=== PATIENT | male | born 1950 | race Two or more races ===

== ENCOUNTER 2022-06-27 14:49 | Inpatient (IN) | payer OTHER ==
[2022-06-27 16:04] LABS: BASO % 0.9 % (0-2.0); EOS % 0.5 % (0-4.5); HEMATOCRIT 44.5 % (35.4-49); HEMOGLOBIN 15.6 GM/dL (11.7-16.9); LYMPH % 28.1 % (8-40); MCHC 35.2 g/dl (32.0-35.9); MEAN PLT VOLUME 7.9 fl (7.5-11.1); MONO % 10.4 % (3.8-10.2); NEUT % 60.1 % (42.8-82.8); PLATELET COUNT 173 10^3/uL (134-434); RBC 4.73 M/mm3 (4.00-5.60); RDW 14.3 % (11.9-15.9); WHITE BLOOD COUNT 5.7 K/mm3 (4.0-10.0)
[2022-06-27 16:31] LABS: CHLORIDE 102 mmol/L (98-107); SODIUM 136 mmol/L (136-145)
[2022-06-27 16:33] LABS: CALCIUM 9.4 mg/dL (8.5-10.1)
[2022-06-27 16:34] LABS: ALBUMIN 3.8 g/dl (3.4-5.0); ANION GAP 8 MMOL/L (8-16); CO2 26 mmol/L (21-32); GLUCOSE,RANDOM 135 mg/dL (74-106); MAGNESIUM 2.1 mg/dL (1.8-2.4)
[2022-06-27 16:37] LABS: CREATININE 1.3 mg/dL (0.55-1.3); PHOSPHOROUS 3.3 mg/dL (2.5-4.9); SGOT/AST 31 U/L (15-37); SGPT/ALT 35 U/L (13-61)
[2022-06-27 16:38] LABS: BILIRUBIN,TOTAL 0.6 mg/dL (0.2-1); TOT PROT 7.4 g/dl (6.4-8.2)
[2022-06-27 16:39] LABS: ALK PHOS 62 U/L (45-117)
[2022-06-27 17:51] LABS: INR 1.01 (0.83-1.09); PROTHROMBIN TIME (PATIENT) 11.6 SEC (9.7-13.0)
[2022-06-27 17:54] LABS: ACTIVATED PTT 26.8 SECONDS (25.2-36.5)
[2022-06-27] MEDS ORDERED: ACETAMINOPHEN 325 MG TABLET (FP) PO PRN (22:14)
[2022-06-27] MEDS: ENOXAPARIN NA (PORCINE) 40 MG/0.4 ML DISP.SYRIN SQ SCH (22:45)
[2022-06-27 23:08] VITALS: BMI 23.6
[2022-06-28 00:07] LABS: N-TERMINAL BNP 335.4 pg/ml (5-125)
[2022-06-28] MEDS ORDERED: ASPIRIN 325 MG TABLET PO ONE ×2 (02:51→09:45)
[2022-06-28] MEDS ORDERED: SODIUM CHLORIDE 1,000 ML IV SCH (04:45)
[2022-06-28 08:14] LABS: BASO % 0.8 % (0-2.0); EOS % 0.6 % (0-4.5); HEMATOCRIT 46.4 % (35.4-49); HEMOGLOBIN 16.1 GM/dL (11.7-16.9); LYMPH % 22.8 % (8-40); MCH 32.3 pg (25.7-33.7); MCHC 34.8 g/dl (32.0-35.9); MEAN CELL VOLUME 92.9 fl (80-96); MEAN PLT VOLUME 8.5 fl (7.5-11.1); MONO % 10.7 % (3.8-10.2); NEUT % 65.1 % (42.8-82.8); PLATELET COUNT 186 10^3/uL (134-434); RBC 4.99 M/mm3 (4.00-5.60); RDW 14.3 % (11.9-15.9)
[2022-06-28 08:35] LABS: CHLORIDE 104 mmol/L (98-107); SODIUM 140 mmol/L (136-145)
[2022-06-28 08:37] LABS: ANION GAP 7 MMOL/L (8-16); CO2 29 mmol/L (21-32)
[2022-06-28 08:38] LABS: MAGNESIUM 2.1 mg/dL (1.8-2.4)
[2022-06-28 08:39] LABS: ALBUMIN 3.7 g/dl (3.4-5.0); BLOOD UREA NITROGEN 19.2 mg/dL (7-18); CALCIUM 9.5 mg/dL (8.5-10.1); GLUCOSE,RANDOM 108 mg/dL (74-106)
[2022-06-28 08:41] LABS: SGOT/AST 25 U/L (15-37); SGPT/ALT 32 U/L (13-61)
[2022-06-28 08:42] LABS: CHOLESTEROL 191 mg/dL (50-200); PHOSPHOROUS 3.1 mg/dL (2.5-4.9)
[2022-06-28 08:43] LABS: TOT PROT 7.5 g/dl (6.4-8.2); TRIGLYCERIDES 55 mg/dL (0-150)
[2022-06-28 08:44] LABS: BILIRUBIN,TOTAL 0.9 mg/dL (0.2-1); LDL CHOLESTEROL (ONLY SJRH) 97 mg/dL (5-100)
[2022-06-28 08:45] LABS: ALK PHOS 62 U/L (45-117); HDL CHOLESTEROL 69 mg/dL (40-60)
[2022-06-28] MEDS: ENOXAPARIN NA (PORCINE) 40 MG/0.4 ML DISP.SYRIN SQ SCH (09:43)
[2022-06-28] MEDS ORDERED: ASPIRIN 81 MG CHEWABLE TABLETS PO ONE (09:45)
[2022-06-28] MEDS ORDERED: ASPIRIN 81 MG CHEWABLE TABLETS PO SCH (10:00)
[2022-06-28] MEDS ORDERED: LOSARTAN POTASSIUM 50 MG TABLET PO SCH (11:15)
[2022-06-28] MEDS ORDERED: POTASSIUM CHLORIDE ORAL LIQUID 20 MEQ/15 ML PO ONE (13:45)
[2022-06-28] MEDS ORDERED: LOSARTAN POTASSIUM 50 MG TABLET PO ONE (15:19)
[2022-06-28] MEDS ORDERED: amLODIPine BESYLATE 10 MG TABLET (FP) PO SCH (15:30)
[2022-06-28 16:09] VITALS: RESP 18
[2022-06-28 18:38] VITALS: BP 167/64; PULSE 33; TEMP 98.6
[2022-06-28] MEDS ORDERED: ATORVASTATIN CA 20 MG TABLET (FP) PO SCH (22:00)
[2022-06-29] MEDS ORDERED: CHLORTHALIDONE 25 MG TABLET PO SCH (07:00)
[2022-06-29] MEDS ORDERED: LOSARTAN POTASSIUM 50 MG TABLET PO SCH (10:00)
== END 2022-06-28 19:22 | disposition short-term general hospital (02) | DRG 309 ==
LOC: JER 14:49 → JERBED 16:12 → J4W 22:08
PROVIDERS: ADMIT Internal Medicine; ATTEND Internal Medicine
DX: I44.2 Atrioventricular block, complete (principal); I24.8 Other forms of acute ischemic heart disease; R00.1 Bradycardia, unspecified; I10 Essential (primary) hypertension; E78.5 Hyperlipidemia, unspecified; I45.2 Bifascicular block
CPT/HCPCS: 36415; 71045-TC-FY; 80053; 80061; 82550; 83036; 83735; 83880; 84100; 84484; 85025; 85610; 85730; 86850; 86900; 86901; 93005; 93010; 99291; C9803-CS; U0003; U0005